=== PATIENT | female | born 1970 | race Caucasian/White ===

== ENCOUNTER 2018-07-11 14:30 | Emergency (ER) | payer BC, OTHER ==
[2018-07-11 14:37] VITALS: BP 166/86; PULSE 78; TEMP 99.3; BMI 29.9
--- NOTE | 2018-07-11 15:04 | PDOC ---
History of Present Illness - General Chief Complaint: Lightheaded Stated Complaint: BLOOD PRESSURE PROBLEM Time Seen by Provider: 07/11/18 14:40 History Source: Patient - History of Present Illness Timing/Duration: other Past History - Past Medical History Allergies/Adverse Reactions: Allergies Allergy/AdvReac Type Severity Reaction Status Date / Time codeine Allergy Verified 07/11/18 14:32 Home Medications: Ambulatory Orders Metoprolol Succinate [Toprol Xl -] 50 mg PO DAILY 07/11/18 Olmesartan Medoxomil [Benicar] 20 mg PO DAILY 07/11/18 COPD: No HTN: Yes - Suicide/Smoking/Psychosocial Hx Smoking History: Never smoked Review of Systems - Review of Systems Constitutional: No: Fever, Weakness Respiratory: No: Shortness of Breath Cardiac (ROS): No: Chest Pain ABD/GI: Yes: Diarrhea, Nausea. No: Blood Streaked Bowels, Constipated, Rectal Bleeding, Vomiting, Abdominal cramping, Tarry Stools : No: Dysuria *Physical Exam - Vital Signs Last Vital Signs Temp Pulse Resp BP Pulse Ox 99.3 F 78 18 166/86 100 07/11/18 14:36 07/11/18 14:36 07/11/18 14:36 07/11/18 14:36 07/11/18 14:36 - Physical Exam General Appearance: Yes: Appropriately Dressed. No: Apparent Distress HEENT: positive: Normal Voice Neck: positive: Supple Respiratory/Chest: positive: Lungs Clear, Normal Breath Sounds. negative: Respiratory Distress Cardiovascular: positive: Regular Rate, S1, S2 Gastrointestinal/Abdominal: positive: Soft. negative: Tender Musculoskeletal: negative: CVA Tenderness Integumentary: positive: Dry, Warm Neurologic: positive: Fully Oriented, Alert, Motor Strength 5/5, Finger to Nose. negative: Facial Droop (no drift or ataxia), Confused, Disoriented Moderate Sedation - Procedure Monitoring Vital Signs: Procedure Monitoring Vital Signs Temperature 99.3 F 07/11/18 14:36 Pulse Rate 78 07/11/18 14:36 Respiratory Rate 18 07/11/18 14:36 Blood Pressure 166/86 07/11/18 14:36 O2 Sat by Pulse Oximetry (%) 100 07/11/18 14:36 ED Treatment Course - LABORATORY CBC & Chemistry Diagram: 07/11/18 15:20 07/11/18 15:20 Medical Decision Making - Medical Decision Making 07/11/18 15:01 48 yo F, post menopausal, h/o HTN, on metoprolol, here w/ dizziness. Patient states for the past 6 days, has had intermittent dizziness described as lightheadedness, present regardless of position, that resolves after several minutes. Also reports nausea but only w/ dizziness. No vomiting, vertigo, visual changes, focal weakness, headache, syncope, CP or SOB. States dizziness worsened this a.m so decided to come to ED. Patient states when symptoms started on Friday, she took her blood pressure at home and states it was 170/ 100 so went to see her doctor on Friday, who added olmesartan/ hydroochlorothiazide, but dizziness continued and so M.D. took her off meds and started her on benicar. Patient states M.D. also did EKG and labs, and told her her NA was 129. Pt has millicent having intermittent NB, watery diarrhea this week. No abd pain, weakness or fever. No recent travel, sick contact or recent abx use See exam Possible dehydration 2/2 mild diarrheal illness Stable here w/ unremarkable exam -labs -IVF -reasess 07/11/18 17:00 Labs unremarkable here. Patient s/p 1L NS and feels well with no dizziness at this time. Stable for discharge to continue following up with her PMD if dizziness persists 07/11/18 17:03 *DC/Admit/Observation/Transfer Diagnosis at time of Disposition: Dizziness - Discharge Dispostion Disposition: HOME Condition at time of disposition: Good - Referrals Referrals: Samir Villaseñor MD [Primary Care Provider] - - Patient Instructions Printed Discharge Instructions: DI for Dizziness-Nonvertigo Additional Instructions: Cause of your dizziness is unclear at this time but may be due to mild dehydration. Continue maintaining adequate hydration at home and continue to follow-up with your PMD if symptoms persist - Post Discharge Activity
[2018-07-11] MEDS ORDERED: SODIUM CHLORIDE 1,000 ML IV STA (15:05)
[2018-07-11 15:35] LABS: BASO % 0.6 % (0-2.0); EOS % 0.5 % (0-4.5); HEMATOCRIT 36.8 % (32.4-45.2); HEMOGLOBIN 12.9 GM/dL (10.7-15.3); LYMPH % 18.8 % (8-40); MCHC 35.2 g/dl (32.0-36.0); MEAN CELL VOLUME 90.9 fl (80-96); MEAN PLT VOLUME 6.8 fl (7.5-11.1); MONO % 9.9 % (3.8-10.2); NEUT % 70.2 % (42.8-82.8); PLATELET COUNT 351 K/MM3 (134-434); RBC 4.04 M/mm3 (3.60-5.2); RDW 12.5 % (11.6-15.6); WHITE BLOOD COUNT 5.4 K/mm3 (4.0-10.0)
[2018-07-11 16:05] LABS: ALBUMIN 3.8 g/dl (3.4-5.0); ALK PHOS 41 U/L (45-117); ANION GAP 7 MMOL/L (8-16); BILIRUBIN,TOTAL 0.7 mg/dL (0.2-1); BLOOD UREA NITROGEN 11 mg/dL (7-18); CALCIUM 8.7 mg/dL (8.5-10.1); CHLORIDE 99 mmol/L (98-107); CO2 26 mmol/L (21-32); CREATININE 0.5 mg/dL (0.55-1.3); GLUCOSE,RANDOM 95 mg/dL (74-106); SGOT/AST 23 U/L (15-37); SGPT/ALT 28 U/L (13-61); SODIUM 131 mmol/L (136-145); TOT PROT 8.3 g/dl (6.4-8.2)
[2018-07-11 16:55] LABS: URINE APPEARANCE CLEAR; URINE BILIRUBIN NEGATIVE (<2.0 mg/dL); URINE COLOR YELLOW; URINE GLUCOSE (UA) NEGATIVE (NEGATIVE); URINE KETONE NEGATIVE (NEGATIVE); URINE LEUK ESTERASE 2+ (NEGATIVE); URINE NITRITE NEGATIVE (NEGATIVE); URINE PROTEIN NEGATIVE (NEGATIVE)
[2018-07-11 17:08] LABS: EPI CELLS RARE /HPF (FEW); URINE MUCUS FEW
--- NOTE | 2018-07-12 15:40 | EKG ---
Test Reason : Blood Pressure : / mmHG Vent. Rate : 070 BPM Atrial Rate : 070 BPM P-R Int : 144 ms QRS Dur : 088 ms QT Int : 396 ms P-R-T Axes : 065 045 046 degrees QTc Int : 427 ms NORMAL SINUS RHYTHM POSSIBLE LEFT ATRIAL ENLARGEMENT BORDERLINE ECG NO PREVIOUS ECGS AVAILABLE Confirmed by KAVIN KU MD ([id number]) on 07/12/2018 3:40:12 PM Referred By: Confirmed By:KAVIN KU MD
== END 2018-07-11 17:29 | disposition home or self-care (01) ==
LOC: JER 14:30
PROC: 3E0337Z Introduction of Electrolytic and Water Balance Substance into Peripheral Vein, Percutaneous Approach (ICD-10-PCS; principal; 2018-07-11)
DX: R42 Dizziness and giddiness (principal); I10 Essential (primary) hypertension
CPT/HCPCS: 36415; 80053; 81003; 81015; 82550; 84484; 85025; 93005; 93010; 99283-25; J7030

== ENCOUNTER 2019-05-05 16:01 | Emergency (ER) | payer BC ==
[2019-05-05 16:10] VITALS: PULSE 85; TEMP 98.2; BMI 29.9
--- NOTE | 2019-05-05 16:12 | PDOC ---
Rapid Medical Evaluation Chief Complaint: Pain Time Seen by Provider: 05/05/19 16:08 Medical Evaluation: Allergies Allergy/AdvReac Type Severity Reaction Status Date / Time codeine Allergy Verified 07/11/18 14:32 05/05/19 16:08 Pt presents for L shoulder tightness and chest discomfort since last night. States the pain/discomfort is worse with movememt. Exam: Reproducible chest discomfort on the L with palpation Orders: EKG Pt to proceed to the ER for further evaluation Discharge Disposition - Diagnosis Chest tightness - Referrals - Patient Instructions - Post Discharge Activity
[2019-05-05 16:47] LABS: BASO % 0.4 % (0-2.0); EOS % 0.3 % (0-4.5); HEMATOCRIT 35.8 % (32.4-45.2); LYMPH % 24.4 % (8-40); MCH 30.8 pg (25.7-33.7); MCHC 33.6 g/dl (32.0-36.0); MEAN CELL VOLUME 91.8 fl (80-96); MEAN PLT VOLUME 6.6 fl (7.5-11.1); MONO % 11.4 % (3.8-10.2); NEUT % 63.5 % (42.8-82.8); PLATELET COUNT 386 K/MM3 (134-434); RDW 12.2 % (11.6-15.6); WHITE BLOOD COUNT 4.8 K/mm3 (4.0-10.0)
--- NOTE | 2019-05-05 16:59 | PDOC ---
History of Present Illness <KoryZiggy - Last Filed: 05/05/19 17:06> - General History Source: Patient Exam Limitations: No Limitations <Zaheer,Neha - Last Filed: 05/05/19 20:14> - General Chief Complaint: Pain Stated Complaint: ARMPIT TIGHTNESS Time Seen by Provider: 05/05/19 16:08 Past History <TripptiarraZiggy - Last Filed: 05/05/19 17:06> - Past Medical History COPD: No HTN: Yes - Psycho Social/Smoking Cessation Hx Smoking History: Never smoked Information on smoking cessation initiated: No Hx Alcohol Use: No Drug/Substance Use Hx: No <ZaheerSanjuanita julian - Last Filed: 05/05/19 20:14> - Past Medical History Allergies/Adverse Reactions: Allergies Allergy/AdvReac Type Severity Reaction Status Date / Time codeine Allergy Verified 05/05/19 16:10 Home Medications: Ambulatory Orders Metoprolol Succinate [Toprol Xl -] 50 mg PO DAILY 07/11/18 Olmesartan Medoxomil [Benicar] 20 mg PO DAILY 07/11/18 *Physical Exam - Vital Signs Last Vital Signs Temp Pulse Resp BP Pulse Ox 98.2 F 85 19 166/105 H 100 05/05/19 16:08 05/05/19 16:08 05/05/19 16:08 05/05/19 16:08 05/05/19 16:08 <Guillermo Hornkristian - Last Filed: 05/05/19 17:06> - Vital Signs Last Vital Signs Temp Pulse Resp BP Pulse Ox 98.2 F 85 19 166/105 H 100 05/05/19 16:08 05/05/19 16:08 05/05/19 16:08 05/05/19 16:08 05/05/19 16:08 - Physical Exam General Appearance: No: Apparent Distress Respiratory/Chest: positive: Lungs Clear, Normal Breath Sounds. negative: Chest Tender, Respiratory Distress Cardiovascular: positive: Regular Rhythm, Regular Rate, S1, S2. negative: Murmur Gastrointestinal/Abdominal: positive: Normal Bowel Sounds, Soft. negative: Tender, Distended, Guarding, Rebound Extremity: negative: Pedal Edema, Swelling, Calf Tenderness Neurologic: positive: Alert <Sanjuanita Schwab - Last Filed: 05/05/19 20:14> Heart Score/ECG Review - History History: Slightly suspicious - Electrocardiogram EKG: Normal - Age Age: 45-65 - Risk Factors Based on the list above the patient has:: 1-2 risk factors - Troponin Troponin: </= normal limit - Score Heart Score - Total: 2 <Ziggy Horn - Last Filed: 05/05/19 17:06> ED Treatment Course - LABORATORY CBC & Chemistry Diagram: 05/05/19 16:24 05/05/19 16:24 - ADDITIONAL ORDERS Additional order review: Laboratory Results 05/05/19 05/05/19 16:24 16:24 Sodium 128 L Potassium 3.6 Chloride 97 L Carbon Dioxide 24 Anion Gap 7 L BUN 8.2 Creatinine 0.5 L Est GFR (CKD-EPI)AfAm 129.88 Est GFR (CKD-EPI)NonAf 112.06 Random Glucose 96 Calcium 9.0 Total Bilirubin 0.6 AST 39 H ALT 30 Alkaline Phosphatase 40 L Creatine Kinase 159 Troponin I < 0.02 Total Protein 8.6 H Albumin 4.0 Urine HCG, Qual Negative 05/05/19 16:24 RBC 3.90 MCV 91.8 MCHC 33.6 RDW 12.2 MPV 6.6 L Neutrophils % 63.5 Lymphocytes % 24.4 D Monocytes % 11.4 H Eosinophils % 0.3 Basophils % 0.4 <Ziggy Horn - Last Filed: 05/05/19 17:06> - LABORATORY CBC & Chemistry Diagram: 05/05/19 16:24 05/05/19 16:24 - ADDITIONAL ORDERS Additional order review: Laboratory Results 05/05/19 16:24 Urine HCG, Qual Negative - RADIOLOGY Radiology Studies Ordered: Category Date Time Status CHEST PA & LAT [RAD] Stat Radiology 05/05/19 16:47 Ordered <Sanjuanita Schwab - Last Filed: 05/05/19 20:14> Medical Decision Making - Medical Decision Making 49 y/o F post-menopausal hx of HTN (on metoprolol and olmesartan) and GERD presents with constant nonradiating L sided CP from last night, which feels like gas. Pain is nonexertional. Denies fever, URI sxs, sob, abd pain, n/v, dizziness. Denies having this type of pain before. Denies FH of CAD or MT. Is former smoker (quit 5 years ago; states was not heavy smoker though; states probably finished 1 pack in 2 weeks). Denies drug use. Denies recent travel or recent surgeries. Consider ACS Less suspicious for PE given no risk factors; unable to PERC out given age, but meets 0 of the Wells Criteria EKG: NSR at 81 bpm, no ST-T changes Plan: Labs, CXR 05/05/19 16:55 Initial trop negative Na 128, prior 131; patient mentions she has hx of hyponatremia (is being worked up by her PCP) HS is 2 D/W Dr. Horn - recommends repeat trop in 3 hrs 05/05/19 17:11 CXR wet read negative 05/05/19 17:21 Repeat trop neg 05/05/19 20:12 <Sanjuanita Schwab - Last Filed: 05/05/19 20:14> Discharge <Ziggy Horn - Last Filed: 05/05/19 17:06> - Discharge Information Problems reviewed: Yes - Admission No - Additional Discharge Information Prescription Drug Monitoring Program (I-STOP) results: I-STOP not reviewed <Sanjuanita Schwab - Last Filed: 05/05/19 20:14> - Discharge Information Clinical Impression/Diagnosis: Chest tightness Condition: Stable Disposition: HOME - Follow up/Referral Referrals: Efe Ace MD [Primary Care Provider] - 2 Days - Patient Discharge Instructions Patient Printed Discharge Instructions: DI for Chest Pain Additional Instructions: Thank you for choosing [facility]. It was a pleasure taking care of you. Your labs were notable for low sodium (128) The rest of your blood work was unremarkable Please continue follow-up with your doctor in 2 days Return to the Emergency Department if your symptoms worsen or persist or have other concerning symptoms. - Post Discharge Activity
[2019-05-05 17:04] LABS: ALK PHOS 40 U/L (45-117); ANION GAP 7 MMOL/L (8-16); BILIRUBIN,TOTAL 0.6 mg/dL (0.2-1); BLOOD UREA NITROGEN 8.2 mg/dL (7-18); CHLORIDE 97 mmol/L (98-107); CO2 24 mmol/L (21-32); CREATININE 0.5 mg/dL (0.55-1.3); GLUCOSE,RANDOM 96 mg/dL (74-106); POTASSIUM 3.6 mmol/L (3.5-5.1); SGOT/AST 39 U/L (15-37); SGPT/ALT 30 U/L (13-61); SODIUM 128 mmol/L (136-145); TOT PROT 8.6 g/dl (6.4-8.2)
[2019-05-05 19:49] VITALS: BP 153/89
--- NOTE | 2019-05-06 11:36 | EKG ---
Test Reason : Blood Pressure : / mmHG Vent. Rate : 081 BPM Atrial Rate : 081 BPM P-R Int : 148 ms QRS Dur : 102 ms QT Int : 372 ms P-R-T Axes : 069 -12 047 degrees QTc Int : 432 ms NORMAL SINUS RHYTHM POSSIBLE LEFT ATRIAL ENLARGEMENT LEFT VENTRICULAR HYPERTROPHY CANNOT RULE OUT SEPTAL INFARCT , AGE UNDETERMINED ABNORMAL ECG WHEN COMPARED WITH ECG OF 11-JUL-2018 15:30, MINIMAL CRITERIA FOR SEPTAL INFARCT ARE NOW PRESENT Confirmed by JANAE REID MD ([id number]) on 05/06/2019 11:36:30 AM Referred By: Confirmed By:JANAE REID MD
== END 2019-05-05 20:34 | disposition home or self-care (01) ==
LOC: JERFT 16:01 → JER 16:01
DX: R07.9 Chest pain, unspecified (principal); K21.9 Gastro-esophageal reflux disease without esophagitis; I10 Essential (primary) hypertension; Z88.6 Allergy status to analgesic agent
CPT/HCPCS: 36415; 71046-TC-FY; 80053; 82550; 82553; 84484; 84703; 85025; 93005; 93010; 99283-25

== ENCOUNTER 2021-06-16 00:13 | Inpatient (IN) | payer BC ==
[2021-06-16 01:13] LABS: BASO % 0.5 % (0-2.0); EOS % 1.5 % (0-4.5); HEMATOCRIT 35.5 % (32.4-45.2); HEMOGLOBIN 12.6 GM/dL (10.7-15.3); LYMPH % 35.5 % (8-40); MCH 31.5 pg (25.7-33.7); MCHC 35.4 g/dl (32.0-36.0); MEAN CELL VOLUME 88.9 fl (80-96); MONO % 18.1 % (3.8-10.2); NEUT % 44.4 % (42.8-82.8); PLATELET COUNT 346 10^3/uL (134-434); RDW 12.6 % (11.6-15.6); WHITE BLOOD COUNT 4.5 K/mm3 (4.0-10.0)
[2021-06-16 01:30] LABS: CHLORIDE 89 mmol/L (98-107); SODIUM 123 mmol/L (136-145)
[2021-06-16 01:33] LABS: ALBUMIN 3.6 g/dl (3.4-5.0); ANION GAP 8 MMOL/L (8-16); CO2 26 mmol/L (21-32); GLUCOSE,RANDOM 101 mg/dL (74-106)
[2021-06-16 01:36] LABS: CREATININE 0.5 mg/dL (0.55-1.3); SGOT/AST 25 U/L (15-37); SGPT/ALT 25 U/L (13-61)
[2021-06-16 01:37] LABS: BILIRUBIN,TOTAL 0.7 mg/dL (0.2-1); TOT PROT 7.6 g/dl (6.4-8.2)
[2021-06-16 01:39] LABS: ALK PHOS 37 U/L (45-117)
[2021-06-16] MEDS ORDERED: SODIUM CHLORIDE 0.9% 500 ML INFUS.BAG IV ONE (02:06)
[2021-06-16 02:36] LABS: INR 1.12 (0.83-1.09); PROTHROMBIN TIME (PATIENT) 12.9 SEC (9.7-13.0)
[2021-06-16 04:40] LABS: CALCIUM 8.8 mg/dL (8.5-10.1)
[2021-06-16 04:41] LABS: BLOOD UREA NITROGEN 10.3 mg/dL (7-18)
[2021-06-16 04:44] LABS: CREATININE 0.6 mg/dL (0.55-1.3)
[2021-06-16 09:50] LABS: URINE APPEARANCE CLEAR; URINE BILIRUBIN NEGATIVE (NEGATIVE); URINE COLOR YELLOW; URINE GLUCOSE (UA) NEGATIVE (NEGATIVE); URINE KETONE NEGATIVE (NEGATIVE); URINE LEUK ESTERASE NEGATIVE (NEGATIVE); URINE NITRITE NEGATIVE (NEGATIVE); URINE PROTEIN NEGATIVE (NEGATIVE); URINE UROBILINOGEN 0.2 mg/dL (0.2-1.0)
[2021-06-16] MEDS ORDERED: ACETAMINOPHEN 325 MG TABLET (FP) ONE (12:11)
[2021-06-16] MEDS ORDERED: ACETAMINOPHEN 325 MG TABLET (FP) PO PRN (12:29)
[2021-06-16 17:39] LABS: BASO % 0.5 % (0-2.0); HEMATOCRIT 34.6 % (32.4-45.2); HEMOGLOBIN 12.1 GM/dL (10.7-15.3); LYMPH % 32.6 % (8-40); MCH 31.6 pg (25.7-33.7); MCHC 35.1 g/dl (32.0-36.0); MONO % 17.3 % (3.8-10.2); NEUT % 47.6 % (42.8-82.8); PLATELET COUNT 330 10^3/uL (134-434); RBC 3.84 M/mm3 (3.60-5.2); RDW 12.7 % (11.6-15.6)
[2021-06-16 18:07] LABS: CALCIUM 8.3 mg/dL (8.5-10.1)
[2021-06-16 18:08] LABS: ALBUMIN 3.2 g/dl (3.4-5.0); BLOOD UREA NITROGEN 11.6 mg/dL (7-18)
[2021-06-16 18:11] LABS: CREATININE 0.5 mg/dL (0.55-1.3)
[2021-06-16 18:13] LABS: BILIRUBIN,TOTAL 0.7 mg/dL (0.2-1); TOT PROT 6.9 g/dl (6.4-8.2)
[2021-06-16 20:55] VITALS: BMI 29.2
[2021-06-17 09:23] LABS: ALBUMIN 3.6 g/dl (3.4-5.0); BILIRUBIN,TOTAL 0.8 mg/dl (0.2-1); CALCIUM 8.6 mg/dl (8.5-10); CREATININE 0.5 mg/dl (0.55-1.3); TOT PROT 6.9 g/dl (6.4-8.2)
[2021-06-17 09:33] LABS: BASO % 0.7 % (0-2.0); EOS % 3.1 % (0-4.5); HEMATOCRIT 36.4 % (32.4-45.2); HEMOGLOBIN 12.9 GM/dL (10.7-15.3); LYMPH % 35.8 % (8-40); MCH 31.8 pg (25.7-33.7); MCHC 35.5 g/dl (32.0-36.0); MEAN CELL VOLUME 89.6 fl (80-96); MEAN PLT VOLUME 6.4 fl (7.5-11.1); MONO % 14.5 % (3.8-10.2); NEUT % 45.9 % (42.8-82.8); PLATELET COUNT 341 10^3/uL (134-434); RBC 4.06 M/mm3 (3.60-5.2); RDW 12.8 % (11.6-15.6); WHITE BLOOD COUNT 3.7 K/mm3 (4.0-10.0)
[2021-06-17] MEDS ORDERED: LOSARTAN POTASSIUM 50 MG TABLET PO SCH (10:45)
[2021-06-17] MEDS: FUROSEMIDE 20 MG TABLET (FP) PO SCH (12:18)
[2021-06-17] MEDS: FAMOTIDINE 20 MG TABLET PO SCH (12:18)
[2021-06-17] MEDS: LOSARTAN POTASSIUM 50 MG TABLET PO SCH (12:19)
[2021-06-17] MEDS: SODIUM CHLORIDE 1 GM TABLET PO SCH ×2 (18:52→21:13)
[2021-06-18 09:14] LABS: ALBUMIN 3.4 g/dl (3.4-5.0); BILIRUBIN,TOTAL 0.9 mg/dl (0.2-1); CALCIUM 8.8 mg/dl (8.5-10); CREATININE 0.5 mg/dl (0.55-1.3); MAGNESIUM 1.7 mg/dL (1.8-2.4); TOT PROT 6.7 g/dl (6.4-8.2)
[2021-06-18] MEDS: SODIUM CHLORIDE 1 GM TABLET PO SCH (10:21)
[2021-06-18] MEDS: FUROSEMIDE 20 MG TABLET (FP) PO SCH (10:21)
[2021-06-18] MEDS: FAMOTIDINE 20 MG TABLET PO SCH (10:22)
[2021-06-18 10:24] LABS: BASO % 0.4 % (0-2.0); HEMATOCRIT 34.9 % (32.4-45.2); HEMOGLOBIN 12.2 GM/dL (10.7-15.3); LYMPH % 32.1 % (8-40); MCH 31.6 pg (25.7-33.7); MCHC 34.9 g/dl (32.0-36.0); MEAN CELL VOLUME 90.5 fl (80-96); MEAN PLT VOLUME 6.6 fl (7.5-11.1); MONO % 16.4 % (3.8-10.2); NEUT % 49.1 % (42.8-82.8); PLATELET COUNT 295 10^3/uL (134-434); RBC 3.85 M/mm3 (3.60-5.2); RDW 12.3 % (11.6-15.6); WHITE BLOOD COUNT 3.9 K/mm3 (4.0-10.0)
[2021-06-18] MEDS: LOSARTAN POTASSIUM 50 MG TABLET PO SCH (10:26)
[2021-06-18] MEDS ORDERED: MECLIZINE HCL 12.5 MG TABLET PO PRN (12:10)
[2021-06-18] MEDS: AMOX TR/POT CLAV 875MG/125MG TABLETS (FP) PO SCH ×2 (12:51→17:27)
[2021-06-18] MEDS ORDERED: LORazepam 2 MG/ML SDV VIAL IM ONE (14:56)
[2021-06-18] MEDS ORDERED: ONDANSETRON 4 MG/2 ML VIAL IVPUSH PRN (18:26)
[2021-06-18] MEDS: ENOXAPARIN NA (PORCINE) 40 MG/0.4 ML DISP.SYRIN SQ SCH (21:17)
[2021-06-19 08:49] LABS: CALCIUM 8.6 mg/dl (8.5-10); CREATININE 0.5 mg/dl (0.55-1.3)
[2021-06-19] MEDS ORDERED: SODIUM CHLORIDE 1 GM TABLET PO SCH (10:00)
[2021-06-19] MEDS: FAMOTIDINE 20 MG TABLET PO SCH (10:29)
[2021-06-19] MEDS: FUROSEMIDE 20 MG TABLET (FP) PO SCH (10:30)
[2021-06-19] MEDS: AMOX TR/POT CLAV 875MG/125MG TABLETS (FP) PO SCH ×2 (10:30→17:06)
[2021-06-19] MEDS: LOSARTAN POTASSIUM 50 MG TABLET PO SCH (10:30)
[2021-06-19] MEDS: ENOXAPARIN NA (PORCINE) 40 MG/0.4 ML DISP.SYRIN SQ SCH (10:33)
[2021-06-19] MEDS ORDERED: MECLIZINE HCL 12.5 MG TABLET PO PRN (12:30)
[2021-06-19 14:41] VITALS: BP 128/63; PULSE 88; TEMP 98.6
== END 2021-06-19 17:30 | disposition home or self-care (01) | DRG 641 ==
LOC: JER 00:13 → JERBED 06:41 → FM/S 20:26
PROVIDERS: ADMIT Internal Medicine; ATTEND Nurse Practitioner Acute Care
DX: E87.1 Hypo-osmolality and hyponatremia (principal); R42 Dizziness and giddiness; R53.1 Weakness; I10 Essential (primary) hypertension; R20.2 Paresthesia of skin; H72.90 Unspecified perforation of tympanic membrane, unspecified ear
CPT/HCPCS: 36415; 70450-TC; 71045-TC-FY; 80048; 80053; 81003; 82436; 82550; 82962; 83735; 83930; 83935; 84133; 84300; 84484; 85025; 85610; 93005; 93010; 93306-TC; 93880-TC; 99285-25; C9803-CS; U0003; U0005

== ENCOUNTER 2022-04-08 10:09 | Emergency (ER) | payer BC ==
[2022-04-08 11:22] VITALS: BP 158/100; PULSE 88; RESP 18; TEMP 98.4; BMI 30.5
[2022-04-08 12:35] LABS: BASO % 0.4 % (0-2.0); EOS % 0.2 % (0-4.5); HEMATOCRIT 36.3 % (32.4-45.2); HEMOGLOBIN 12.7 GM/dL (10.7-15.3); LYMPH % 17.6 % (8-40); MCH 31.3 pg (25.7-33.7); MEAN CELL VOLUME 89.5 fl (80-96); MEAN PLT VOLUME 5.9 fl (7.5-11.1); MONO % 9.8 % (3.8-10.2); PLATELET COUNT 456 10^3/uL (134-434); RBC 4.06 M/mm3 (3.60-5.2); RDW 12.4 % (11.6-15.6); WHITE BLOOD COUNT 7.2 K/mm3 (4.0-10.0)
[2022-04-08 13:01] LABS: CALCIUM 9.4 mg/dL (8.5-10.1)
[2022-04-08 13:02] LABS: ALBUMIN 3.8 g/dl (3.4-5.0); BLOOD UREA NITROGEN 9.7 mg/dL (7-18)
[2022-04-08 13:05] LABS: CREATININE 0.5 mg/dL (0.55-1.3)
[2022-04-08 13:08] LABS: BILIRUBIN,TOTAL 0.6 mg/dL (0.2-1); TOT PROT 8.3 g/dl (6.4-8.2)
== END 2022-04-08 14:42 | disposition home or self-care (01) ==
LOC: JER 10:09
DX: R53.1 Weakness (principal); R06.02 Shortness of breath; B97.4 Respiratory syncytial virus as the cause of diseases classified elsewhere
CPT/HCPCS: 0241U-QW; 36415; 71046-TC-FY; 80053; 84484; 85025; 93005; 93010; 99285-25

== ENCOUNTER 2023-03-26 13:57 | Emergency (ER) | payer BC ==
[2023-03-26 14:17] VITALS: BMI 26.9
[2023-03-26] MEDS ORDERED: ONDANSETRON 4 MG/2 ML VIAL IVPB ONE (15:05)
[2023-03-26] MEDS ORDERED: ACETAMINOPHEN 1000 MG/100 ML BAG IVPB ONE (15:05)
[2023-03-26] MEDS ORDERED: ACETAMINOPHEN INJECTION 100 ML IVPB ONE (15:12)
[2023-03-26] MEDS ORDERED: ONDANSETRON 4 MG/2 ML VIAL ONE (15:12)
[2023-03-26 15:30] VITALS: BP 123/80; PULSE 71; RESP 18; TEMP 99.6
[2023-03-26 15:35] LABS: HEMATOCRIT 35.4 % (32.4-45.2); HEMOGLOBIN 12.5 GM/dL (10.7-15.3); MCH 31.8 pg (25.7-33.7); MCHC 35.2 g/dl (32.0-36.0); MEAN CELL VOLUME 90.3 fl (80-96); MEAN PLT VOLUME 6.4 fl (7.5-11.1); PLATELET COUNT 389 10^3/uL (134-434); RBC 3.92 M/mm3 (3.60-5.2); RDW 12.7 % (11.6-15.6); WHITE BLOOD COUNT 4.1 K/mm3 (4.0-10.0)
[2023-03-26 15:54] LABS: POTASSIUM 5.1 mmol/L (3.5-5.1)
[2023-03-26 15:56] LABS: ALBUMIN 3.9 g/dl (3.4-5.0)
[2023-03-26 15:57] LABS: BLOOD UREA NITROGEN 10.6 mg/dL (7-18)
[2023-03-26 16:00] LABS: CREATININE 0.5 mg/dL (0.55-1.3)
[2023-03-26 16:01] LABS: BILIRUBIN,TOTAL 0.8 mg/dL (0.2-1); TOT PROT 8.7 g/dl (6.4-8.2)
[2023-03-26 16:39] LABS: BASO % 0.6 % (0-2.0); EOS % 0.4 % (0-4.5); HEMATOCRIT 33.3 % (32.4-45.2); HEMOGLOBIN 11.7 GM/dL (10.7-15.3); LYMPH % 32.4 % (8-40); MCH 31.8 pg (25.7-33.7); MCHC 35.2 g/dl (32.0-36.0); MEAN CELL VOLUME 90.4 fl (80-96); MEAN PLT VOLUME 6.4 fl (7.5-11.1); MONO % 8.8 % (3.8-10.2); NEUT % 57.8 % (42.8-82.8); PLATELET COUNT 356 10^3/uL (134-434); RBC 3.69 M/mm3 (3.60-5.2); RDW 12.7 % (11.6-15.6); WHITE BLOOD COUNT 3.8 K/mm3 (4.0-10.0)
[2023-03-26 16:46] LABS: EPI CELLS 23 /uL (0-25.1); HYALINE CASTS 0 /uL (0-3.1); URINE APPEARANCE TURBID; URINE BACTERIA 314 /uL (0-1359); URINE BILIRUBIN NEGATIVE (NEGATIVE); URINE COLOR YELLOW; URINE GLUCOSE (UA) NEGATIVE (NEGATIVE); URINE KETONE NEGATIVE (NEGATIVE); URINE LEUK ESTERASE TRACE (NEGATIVE); URINE NITRITE NEGATIVE (NEGATIVE); URINE PROTEIN NEGATIVE (NEGATIVE); URINE RBC 14 /uL (0-23.9); URINE UROBILINOGEN 0.2 mg/dL (0.2-1.0); URINE WBC 18 /uL (0-25.8)
== END 2023-03-26 17:10 | disposition home or self-care (01) ==
LOC: JER 13:57
PROC: 3E033NZ Introduction of Analgesics, Hypnotics, Sedatives into Peripheral Vein, Percutaneous Approach (ICD-10-PCS; principal; 2023-03-26)
PROC: 3E033GC Introduction of Other Therapeutic Substance into Peripheral Vein, Percutaneous Approach (ICD-10-PCS; 2023-03-26)
DX: R51.9 Headache, unspecified (principal); R42 Dizziness and giddiness; R11.0 Nausea; R68.83 Chills (without fever); R63.1 Polydipsia; R41.89 Other symptoms and signs involving cognitive functions and awareness; E87.1 Hypo-osmolality and hyponatremia; R19.7 Diarrhea, unspecified
CPT/HCPCS: 36415; 80053; 81003; 83930; 83935; 84300; 84443; 85025; 85027; 87086; 93005; 93010; 99284-25